=== PATIENT | female | born 1965 | race Caucasian/White ===

== ENCOUNTER 2016-11-26 06:38 | Day surgery (SDC) | payer OTHER ==
[2016-11-26] MEDS ORDERED: LIDOCAINE HCL 1% MPF SOL ONE (07:51)
[2016-11-26] MEDS ORDERED: PROPOFOL 500 MG/50 ML EMU IV ONE ×2 (07:51→08:32)
[2016-11-26 09:07] VITALS: TEMP 98
[2016-11-26 09:25] VITALS: RESP 20
[2016-11-26 09:38] VITALS: BP 108/74; PULSE 74; O2SAT 94
== END 2016-11-26 09:44 | disposition home or self-care (01) | DRG 951 ==
LOC: SURG 06:38
PROVIDERS: ATTEND Internal Medicine Gastroenterology
DX: Z86.010 Personal history of colon polyps (principal); R13.10 Dysphagia, unspecified; R10.10 Upper abdominal pain, unspecified; K57.30 Diverticulosis of large intestine without perforation or abscess without bleeding; K64.8 Other hemorrhoids; K63.5 Polyp of colon; E11.9 Type 2 diabetes mellitus without complications; K44.9 Diaphragmatic hernia without obstruction or gangrene
CPT/HCPCS: 82962; 99001; J2001; J2704

== ENCOUNTER 2018-04-27 11:02 | Outpatient (CLI) | payer OTHER ==
[2016-11-26 09:38] VITALS: O2SAT 94
== END 2018-04-27 11:03 | disposition home or self-care (01) | DRG 556 ==
LOC: CONVCARE 11:02
PROVIDERS: ATTEND Orthopaedic Surgery
DX: M25.512 Pain in left shoulder (principal); M75.42 Impingement syndrome of left shoulder
CPT/HCPCS: 73030

== ENCOUNTER 2018-09-14 07:42 | Day surgery (SDC) | payer OTHER ==
[2018-09-14] MEDS ORDERED: BUPIVACAINE/EPI 0.25% 50 ML SOL ONE (08:09)
[2018-09-14] MEDS ORDERED: MIDAZOLAM 2 MG/2 ML SOL ONE (08:58)
[2018-09-14] MEDS ORDERED: PROPOFOL 500 MG/50 ML EMU IV ONE (08:58)
[2018-09-14] MEDS ORDERED: FENTANYL 100MCG/2ML SOL ONE (08:58)
[2018-09-14] MEDS ORDERED: CLINDAMYCIN 150 MG/ML SOL ONE (09:51)
[2018-09-14] MEDS: LIDOCAINE HCL 1% MPF 30 SOL ONE ×2 (10:05→10:17)
[2018-09-14] MEDS ORDERED: KETOROLAC TROMETHAMINE 30 MG/ML SOL ONE (10:13)
[2018-09-14] MEDS ORDERED: HYDROMORPHONE 1 MG/ML SYRINGE ONE (11:26)
[2018-09-14 11:49] VITALS: BP 143/86; PULSE 78; RESP 16; TEMP 98.1; O2SAT 96
== END 2018-09-14 12:25 | disposition home or self-care (01) | DRG 74 ==
LOC: SURG 07:42
PROVIDERS: ATTEND Orthopaedic Surgery
DX: G56.01 Carpal tunnel syndrome, right upper limb (principal); M67.431 Ganglion, right wrist
CPT/HCPCS: 82962; 99001; J1885; J2250; J3010; J3490; A6402; J1170; J2001; J2704